=== PATIENT | female | born 1960 | race Caucasian/White ===

== ENCOUNTER 2017-03-08 17:26 | Emergency (ER) | payer OTHER ==
[~2017-03-08] VITALS: Ht 157.5 cm; Wt 59.0 kg
[2017-03-08 17:38] VITALS: BP_SYST 123
[2017-03-08] MEDS ORDERED: MAG HYDROX/AL HYDROX/SIMETH 30 ML, BELLADONNA ALKALOIDS/PHENOBARB 10 ML, LIDOCAINE VISC... PO ONE ×3 (18:00)
[2017-03-08 18:30] VITALS: BP_SYST 123
== END 2017-03-08 18:30 | disposition home or self-care (01) ==
LOC: SED 17:26
DX: S16.1XXA Strain of muscle, fascia and tendon at neck level, initial encounter (principal); J44.0 Chronic obstructive pulmonary disease with (acute) lower respiratory infection; Z90.89 Acquired absence of other organs; Z90.710 Acquired absence of both cervix and uterus; X58.XXXA Exposure to other specified factors, initial encounter; Y93.89 Activity, other specified; Y92.89 Other specified places as the place of occurrence of the external cause; Y99.8 Other external cause status
CPT/HCPCS: 72040; 99284; J2001

== ENCOUNTER 2023-12-16 06:14 | Day surgery (SDC) | payer OTHER ==
[~2023-12-16] VITALS: Ht 158.8 cm; Wt 59.4 kg
[2023-12-16] VITALS (7 sets, daily range): BP systolic 105–126; PULSE 61–91; RESP 16–20; TEMP 96–98.7; O2SAT 96–99
[2023-12-16] MEDS ORDERED: CEFAZOLIN SOD 2 GM in D5W 50 ML IV ONE (07:00)
[2023-12-16] MEDS ORDERED: BUPIVACAINE LIPOSOME/PF 266 MG/20 ML VIAL INFIL ONE (07:16)
[2023-12-16] MEDS ORDERED: LR 1,000 ML IV.SOLN IV ONE (07:35)
[2023-12-16] MEDS ORDERED: MIDAZOLAM HCL 5 MG/5 ML VIAL ONE (07:35)
[2023-12-16] MEDS ORDERED: METOCLOPRAMIDE HCL 10 MG/2 ML VIAL ONE (07:35)
[2023-12-16] MEDS ORDERED: GLYCOPYRROLATE 0.2 MG/ML VIAL ONE (07:35)
[2023-12-16] MEDS ORDERED: WATER FOR IRRIGATION,STERILE 1,000 ML IRRIG.SOLN IR ONE (07:35)
[2023-12-16] MEDS ORDERED: EPINEPHrine HCL 1 MG/ML VIAL ONE (07:35)
[2023-12-16] MEDS ORDERED: NEOSTIGMINE METHYLSULFATE 1 MG/ML, 10 ML VIAL ONE (07:35)
[2023-12-16] MEDS ORDERED: BUPIVACAINE /PF 0.25% 30 ML VIAL INJ ONE (07:35)
[2023-12-16] MEDS ORDERED: KETOROLAC TROMETHAMINE 30 MG VIAL ONE (07:35)
[2023-12-16] MEDS ORDERED: LIDOCAINE 1% 10 MG/ML, 20 ML MDV ONE (07:35)
[2023-12-16] MEDS ORDERED: CLINDAMYCIN 2% VAGINAL CREAM VG ONE (07:35)
[2023-12-16] MEDS ORDERED: DEXAMETHASONE SOD PHOSPHATE 4 MG/ML VIAL ONE (07:35)
[2023-12-16] MEDS ORDERED: PROPOFOL 200MG/ 20ML VIAL (DIPRIVAN) IV ONE (07:35)
[2023-12-16] MEDS ORDERED: fentaNYL CITRATE/PF 100 MCG/2 ML AMP ONE (07:35)
[2023-12-16] MEDS ORDERED: FUROSEMIDE 20 MG/2 ML VIAL ONE (07:35)
[2023-12-16] MEDS ORDERED: ROCURONIUM BROMIDE 10 MG/ML (ZEMURON) ONE (07:35)
[2023-12-16] MEDS ORDERED: NS IRRIG SOLN 1000 ML IR ONE (07:35)
[2023-12-16] MEDS ORDERED: SEVOFLURANE 15 MIN GAS INH ONE (07:35)
[2023-12-16] MEDS ORDERED: ONDANSETRON HCL 4 MG/2 ML VIAL ONE (07:35)
[2023-12-16] MEDS ORDERED: ACETAMINOPHEN I.V. 1000 MG 100 ML IV ONE (07:37)
[2023-12-16] MEDS ORDERED: LR 1,000 ML IV SCH (08:30)
[2023-12-16] MEDS ORDERED: HYDROmorphone 1 MG/ML INJ. CARTRIDGE IVP PRN (08:30)
[2023-12-16] MEDS ORDERED: KETOROLAC TROMETHAMINE 30 MG VIAL IVP PRN ×2 (08:30→18:00)
[2023-12-16] MEDS ORDERED: ONDANSETRON HCL 4 MG/2 ML VIAL IVP PRN ×2 (08:30→09:45)
[2023-12-16] MEDS ORDERED: HYDROmorphone 2 MG/ML VIAL IVP PRN (08:30)
[2023-12-16] MEDS ORDERED: HYDROmorphone 1 MG/ML INJ. CARTRIDGE ONE (10:32)
[2023-12-16] MEDS: HYDROmorphone 1 MG/ML INJ. CARTRIDGE IVP PRN (10:35)
[2023-12-16] MEDS ORDERED: TRAM50TA2 PO (12:12)
[2023-12-16] MEDS ORDERED: ASCO500T20 PO (12:12)
[2023-12-16] MEDS ORDERED: ZINC30CA PO (12:12)
[2023-12-16] MEDS ORDERED: LORA10TA7 PO (12:12)
[2023-12-16] MEDS ORDERED: SENN8.6T19 PO (12:12)
[2023-12-16] MEDS ORDERED: ALBMDI INH (12:12)
[2023-12-16] MEDS: OXYCODONE/ACETAMINOPHEN 5-325 TABLET PO PRN (14:53)
[2023-12-16] MEDS: ceFAZolin SODIUM 2 GM in D5W 100 ML IV SCH (14:54)
[2023-12-16] MEDS: SENNOSIDES/DOCUSATE SODIUM 1 TAB TABLET(SENOKOT-S) PO SCH (20:33)
[2023-12-16] MEDS: HYDROmorphone 1 MG/ML INJ. CARTRIDGE IM PRN (20:33)
[2023-12-17] VITALS (7 sets, daily range): BP systolic 111–118; PULSE 69–82; RESP 17–18; TEMP 97.1–97.7; O2SAT 95–97
[2023-12-17] MEDS: OXYCODONE/ACETAMINOPHEN *10*mg/325 mg TABLET PO PRN (01:05)
== END 2023-12-17 11:50 | disposition home or self-care (01) ==
LOC: SDS 06:14 → SMU 06:14 → SDS 12-17 11:50
PROVIDERS: ATTEND Specialist
DX: N81.11 Cystocele, midline (principal); N81.6 Rectocele; N39.3 Stress incontinence (female) (male); N36.8 Other specified disorders of urethra; Z78.0 Asymptomatic menopausal state; J44.9 Chronic obstructive pulmonary disease, unspecified; M19.90 Unspecified osteoarthritis, unspecified site; Z90.710 Acquired absence of both cervix and uterus; Z98.890 Other specified postprocedural states; Z79.899 Other long term (current) drug therapy
CPT/HCPCS: 87081; 57288; 57260; 88302; J3490 ×2; J0690; J1100; J0171; J1885; J2765; J2250; J2405; J2704; J3010; J1170 ×2; J7060 ×2; J7120; C1771; J0131; J2710; C9290; J1940; J2001